=== PATIENT | female | born 1985 | race Caucasian/White ===

== ENCOUNTER 2017-06-06 23:53 | Emergency (ER) | payer BC ==
[~2017-06-06] VITALS: Ht 182.9 cm; Wt 80.0 kg
[~2017-06-06 23:53] MED LIST: NAPR500T2 PO; TRAM50TA PO
[2017-06-06 23:59] VITALS: BP 113/64; PULSE 93; RESP 18; TEMP 98.6; O2SAT 100
--- NOTE | 2017-06-07 00:28 | PD ---
HPI Chief Complaint: Back/ Neck Pain or Injury Time Seen by Provider: 00:11 Travel History International Travel<30 days: No Contact w/Intl Traveler<30days: No Traveled to known affect area: No History of Present Illness HPI 31-year-old white female presents to emergency department with complains of headache and back pain. The patient states that she's been sick since Monday. Initially started off with pain in her mid back with radiation up into her neck and shoulders. She also has complaint of headache. She's had some associated nausea but no vomiting. No photophobia. Pain is worse with bending and movement. She does not recall any injury. She has had a slight cough and slight congestion. She denies any fever or chills. No abdominal pain. No dysuria but has some increased urinary frequency. Symptoms are moderate. No alleviating factors. Denies hepatitis, HIV, connective tissue disorders, IV drug abuse PFSH Past Medical History Arthritis: No Asthma: No Autoimmune Disease: No Blood Disorders: No Anxiety: Yes Depression: Yes Heart Rhythm Problems: No Cancer: No Cardiac Catheterization: No Cardiovascular Problems: No High Cholesterol: No Chemotherapy: No Chest Pain: No Congestive Heart Failure: No Cirrhosis: No COPD: No Cerebrovascular Accident: No Diabetes: No Diminished Hearing: No Endocrine: No Gastrointestinal Disorders: Yes (CONSTIPATION) GERD: No Glaucoma: No Genitourinary: Yes (PID, CYSTITIS) Headaches: No Hiatal Hernia: No Heparin Induced Thrombocytopen: No Hypertension: No Immune Disorder: No Implanted Vascular Access Dvce: No Kidney Stones: No Medical other: Yes (ABDOMINAL PAIN, HEAVY MENSTRATION) Musculoskeletal: Yes (CHRONIC BACK PAIN) Neurologic: No Psychiatric: Yes Reproductive: No (5 WKS ) Respiratory: No Immunizations Current: No Migraines: No Myocardial Infarction: No Radiation Therapy: No Renal Failure: No Seizures: No Sickle Cell Disease: No Sleep Apnea: No Thyroid Disease: No Ulcer: No Tetanus Vaccination: < 5 Years PNEUMOCCOCAL Vaccine (Year): 2 ?: Not : 2 Para: 2 Tubal Ligation: Yes Past Surgical History Abdominal Surgery: Yes (CHOLECYSTECTOMY) AICD: No Appendectomy: Yes Arteriovenous Shunt: No Cardiac Surgery: No Cholecystectomy: Yes Coronary Artery Bypass Graft: No Ear Surgery: No Endocrine Surgery: No Eye Surgery: No Genitourinary Surgery: No Gynecologic Surgery: Yes (Endometriosis, D&C?) Insulin Pump: No Joint Replacement: No Neurologic Surgery: No Oral Surgery: No Pacemaker: No Thoracic Surgery: No Tonsillectomy: Yes Social History Alcohol Use: No Tobacco Use: Yes Substance Use: No Allergies-Medications (Allergen,Severity, Reaction): Coded Allergies: ketorolac (Unverified Adverse Reaction, Severe, NAUSEA/ VOMITING , 06/07/17 ) propoxyphene (Unverified Adverse Reaction, Severe, NAUSEA,VOMITING, ) Reported Meds & Prescriptions Reported Meds & Active Scripts Active No Active Prescriptions or Reported Medications Review of Systems Except as stated in HPI: all other systems reviewed are Neg Physical Exam Narrative GENERAL: Well-developed, well-nourished in no apparent distress. Nontoxic appearing. HEAD: Normocephalic, atraumatic. EYES: Pupils equal round and reactive. Extraocular motions intact. No scleral icterus. No injection or drainage. ENT: Nose clear. Throat without erythema, tonsillar hypertrophy or exudate. Uvula midline. Airway patent. NECK: Trachea midline. Supple, patient is able to move her head but does elicit discomfort. She does have bilateral paraspinal tenderness. No gross spasm. No central bony tenderness or spasm. CARDIOVASCULAR: Regular rate and rhythm without murmurs, gallops, or rubs. RESPIRATORY: Clear to auscultation. Breath sounds equal bilaterally. No wheezes , rales, or rhonchi. GASTROINTESTINAL: Abdomen soft, non-tender, nondistended. No hepato-splenomegaly , or palpable masses. No guarding. EXTREMITIES: No clubbing, cyanosis, or edema. No joint tenderness. BACK: Patient has no single point tenderness in the dorsal and lumbar spine. She does complain of diffuse paraspinal tenderness from the mid thoracic spine up into the paracervical spine without deformity. No flank tenderness. NEUROLOGICAL: Awake, alert and oriented x 3 .Cranial nerves grossly intact. Motor and sensory grossly within normal limits. Normal speech. Data Data Last Documented VS Vital Signs Date Time Temp Pulse Resp B/P (MAP) Pulse Ox O2 Delivery O2 Flow Rate FiO2 06/06/17 23:59 98.6 93 18 113/64 (80) 100 Orders Orders Influenzae A/B Antigen (06/07/17 00:18) Ed Urine Pregnancytest Poc (06/07/17 00:18) Ct Brain W/O Iv Contrast(Rout) (06/07/17 00:18) Complete Blood Count With Diff (06/07/17 00:18) Basic Metabolic Panel (Bmp) (06/07/17 00:18) C-Reactive Protein (Crp) (06/07/17 00:18) Westergren Sedimentation Rate (06/07/17 00:18) Diphenhydramine Inj (Benadryl Inj) (06/07/17 00:30) Prochlorperazine Inj (Compazine Inj) (06/07/17 00:30) MDM Medical Decision Making Medical Screen Exam Complete: Yes Emergency Medical Condition: Yes Medical Record Reviewed: Yes Differential Diagnosis MDM: High Differential diagnoses: Influenza, sprain, strain, HNP, nerve or vascular injury , epidural abscess, meningitis Narrative Course IV access is obtained. Routine laboratory tests included a CBC, chemistry, CRP , sedimentation rate a CT of the brain. Urinalysis. Patient alleges allergy to Toradol although she can take ibuprofen without difficulty. Patient's given Compazine 10 mg IV and Benadryl 50 mg IV. Patient's exam is inconsistent with meningitis. I do not believe that this is an epidural abscess. Review the medical record indicates the patient has a history of chronic back pain. Scripts No Active Prescriptions or Reported Meds Condition: Chino Jha Jun 07, 2017 00:28
[2017-06-07] MEDS ORDERED: diphenhydrAMINE HCL 50 MG/ML VIAL IV PUSH ONE (00:30)
[2017-06-07] MEDS ORDERED: PROCHLORPERAZINE INJ 10 MG/2 ML VIAL IV PUSH ONE (00:30)
[2017-06-07 00:53] LABS: AUTOMATED NEUTROPHIL # 8.2 TH/MM3 (1.8-7.7); BASOPHIL % 0.4 % (0.0-2.0); EOSINOPHIL # 0.1 TH/MM3 (0-0.4); EOSINOPHIL % 1.1 % (0.0-4.0); HEMATOCRIT 35.7 % (35.0-46.0); HEMOGLOBIN 13.3 GM/DL (11.6-15.3); LYMPH % 20.5 % (9.0-44.0); LYMPHOCYTE # 2.3 TH/MM3 (1.0-4.8); MEAN CELL VOLUME 96.5 FL (80.0-100.0); MEAN CORPUSCULAR HEMOGLOBIN 35.9 PG (27.0-34.0); MEAN PLATELET VOLUME 8.9 FL (7.0-11.0); MONO % 5.4 % (0.0-8.0); MONOCYTE # 0.6 TH/MM3 (0-0.9); NEUT % 72.6 % (16.0-70.0); PLATELET COUNT 230 TH/MM3 (150-450); RED CELL DISTRIBUTION WIDTH 13.5 % (11.6-17.2); WHITE BLOOD COUNT 11.3 TH/MM3 (4.0-11.0)
[2017-06-07 01:04] VITALS: BP 108/62; PULSE 82; RESP 18; O2SAT 100
[2017-06-07 01:07] LABS: MEAN CORPUSCULAR HGB CONC 37.2 % (32.0-36.0)
[2017-06-07 01:19] LABS: BICARBONATE 27.8 MEQ/L (21.0-32.0); BLOOD UREA NITROGEN 10 MG/DL (7-18); C-REACTIVE PROTEIN LESS THAN 0.29 MG/DL (0.00-0.30); CALCIUM 8.6 MG/DL (8.5-10.1); CHLORIDE 106 MEQ/L (98-107); CREATININE 0.74 MG/DL (0.50-1.00); GLOMERULAR FILTRATION RATE 91 ML/MIN (>89); GLUCOSE,RANDOM 113 MG/DL (74-106); SODIUM (NA) 140 MEQ/L (136-145)
[2017-06-07] MEDS ORDERED: POTASSIUM CHLORIDE 20 MEQ CONTROLLED RELEASE TAB PO ONE (01:30)
[2017-06-07] MEDS ORDERED: SODIUM CHLOR 0.9% 1000 ML INJ 1,000 ML IV ONE (01:30)
[2017-06-07] MEDS ORDERED: POTASSIUM CHLOR 20 MEQ PREMIX 100 ML IV ONE (01:30)
--- NOTE | 2017-06-07 01:41 | RADRPT ---
EXAM DATE/TIME: 06/07/2017 01:05 [facility] COMPARISON: No previous studies available for comparison. INDICATIONS : Cephalgia. RADIATION DOSE: 56.35 CTDIvol (mGy) MEDICAL HISTORY : None SURGICAL HISTORY : None. ENCOUNTER: Initial ACUITY: 1 day PAIN SCALE: 9/10 LOCATION: cranial TECHNIQUE: Multiple contiguous axial images were obtained of the head. Using automated exposure control and adj ustment of the mA and/or kV according to patient size, radiation dose was kept as low as reasonably a chievable to obtain optimal diagnostic quality images. DICOM format image data is available electro nically for review and comparison. FINDINGS: CEREBRUM: The ventricles are normal for age. No evidence of midline shift, mass lesion, hemorrhage or acute in farction. No extra-axial fluid collections are seen. POSTERIOR FOSSA: The cerebellum and brainstem are intact. The 4th ventricle is midline. The cerebellopontine angle i s unremarkable. EXTRACRANIAL: The visualized portion of the orbits is intact. SKULL: The calvaria is intact. No evidence of skull fracture. CONCLUSION: No acute disease. Adrian Thomson MD on June 07, 2017 at 1:37 Board Certified Radiologist. This report was verified electronically.
[2017-06-07 02:25] LABS: BACTERIA, URINE MOD /hpf; BILIRUBIN, URINE NEG (NEG); BLOOD, URINE NEG (NEG); GLUCOSE,URINE NEG (NEG); KETONE, URINE NEG (NEG); MUCUS URINE FEW /lpf (OCC); NITRITE,URINE POS (NEG); PH, URINE 6.5 (5.0-8.5); SQUAMOUS EPITHELIAL CELL URINE 2 /hpf (0-5); URINE COLOR YELLOW (YELLW/STRAW); URINE LEUKOCYTE ESTERASE SMALL (NEG)
[2017-06-07] MEDS ORDERED: MACR100C2 PO (03:07)
[2017-06-07] MEDS ORDERED: DICL75TA PO (03:07)
[2017-06-07] MEDS ORDERED: ROBA500T PO (03:07)
[2017-06-07] MEDS ORDERED: NITROFURANTOIN MONOHYD MACROCR 100 MG CAP PO ONE (03:15)
== END 2017-06-07 04:43 | disposition home or self-care (01) ==
LOC: NEPD 23:53
DX: M54.9 Dorsalgia, unspecified (principal); G89.29 Other chronic pain; N39.0 Urinary tract infection, site not specified; E87.6 Hypokalemia; Z72.0 Tobacco use
CPT/HCPCS: 70450; 80048; 81001; 84703; 85025; 85652; 86140; 87804; 96365; 96375; 99285; J0780; J1200; J3480; J7030